=== PATIENT | male | born 1930 | race African-American/Black ===

== ENCOUNTER 2020-02-27 09:35 | Inpatient (IN) | payer OTHER ==
[~2020-02-27] VITALS: Ht 182.9 cm; Wt 69.4 kg
[2020-02-27 09:36] VITALS: BP 107/41
[2020-02-27] MEDS ORDERED: ACETAMINOPHEN650 M5 PO (09:46)
[2020-02-27] MEDS ORDERED: BRIMONIDINE 0.110 ML OPHTHALMIC (09:47)
[2020-02-27] MEDS ORDERED: COMBIVENT INH (09:48)
[2020-02-27] MEDS ORDERED: COSOPT OCUMETER10 M1 OPHTHALMIC (09:49)
[2020-02-27] MEDS ORDERED: EXELON1 EAC1 TRANSDERM (09:49)
[2020-02-27] MEDS ORDERED: FAMOTIDINE 20 M20 MG PO (09:50)
[2020-02-27] MEDS ORDERED: NORVASC10 MG PO (09:50)
[2020-02-27] MEDS ORDERED: LEVAQUIN 500 M500 M3 PO (09:50)
[2020-02-27] MEDS ORDERED: PLAVIX 75 MG TA75 MG PO (09:51)
[2020-02-27] MEDS ORDERED: REMERON15 M2 PO (09:51)
[2020-02-27] MEDS ORDERED: SUPER THERAVIT1 EACH PO (09:51)
[2020-02-27] MEDS ORDERED: TRAVATAN Z5 ML OPHTHALMIC (09:52)
--- NOTE | 2020-02-27 10:22 | NUR ---
SPOKE TO OSIEL, NURSE AT [facility] SHE STATES HE WAS TESTED WEDNESDAY, STILL AWAITING RESULTS. LAST WEDNESDAY'S (02/19/20) TEST WAS NEGATIVE. HE WAS GOING TO BE STARTED ON L[place]AQU[place] BUT DID NOT INITIATE TX YET, NO RECENT USER OF ANTIBIOTICS. SHE IS FAXING CXR RESULTS FROM LAST NIGHT WHICH SHOW RUL INFILTRATES, MOST RECENT CBC HAD WBC COUNT 17.7 (LAST NIGHT). NUMBER [phone]
[2020-02-27 11:02] LABS: ABSOLUTE NEUTROPHILS 13.4 thou/uL (1.4-8.2); BASOPHILS 0.4 % (0.0-2.0); EOSINOPHILS 0.4 % (0.0-3.0); HEMATOCRIT 35.3 % (42.0-52.0); HEMOGLOBIN 11.9 gm/dL (14.0-18.0); LYMPHOCYTES 10.2 % (24.0-44.0); MCH 28.3 pg (26.0-34.0); MCHC 33.8 g/dL (28.0-37.0); MCV 83.8 fL (80.0-100.0); MONOCYTES 7.8 % (1.0-8.0); PLATELET COUNT 508 thou/uL (150-400); POLYS 81.2 % (36.0-66.0); RBC 4.21 mil/uL (4.50-6.00); RDW 14.8 % (10.5-14.5); WBC 16.5 thou/uL (4.0-11.0)
[2020-02-27 11:17] LABS: CREATININE 1.5 mg/dL (0.7-1.3); POTASSIUM 4.2 mmol/L (3.5-5.1)
[2020-02-27 11:25] LABS: TROPONIN-I 0.27 ng/mL (<0.06)
--- NOTE | 2020-02-27 11:40 | NUR ---
OSIEL FROM [facility] CALLED WANTING AN UPDATE, ADVISED WBC IS 16.5 AND THAT HE IS GETTING READY TO GO TO [facility] FOR HIS CHEST. ADVISED WE'D PROBABLY BE KEEPING HIM, SHE WANTS A CALL BACK WHEN THAT DECISION HAS BEEN MADE [phone]
[2020-02-27 14:08] VITALS: BP 121/58
--- NOTE | 2020-02-27 14:30 | NUR ---
SPOKE TO OSIEL AT [facility] AND PROVIDED HER AN UPDATE
--- NOTE | 2020-02-27 15:38 | EKG ---
[facility] [place] [address] ELECTROCARDIOGRAM REPORT Name: GENE LANCE Room #: 217-P ADM IN M.R.#: [id number] Admission: 02/27/20 Attend Phys: Keith Zavala MD Discharge: Date of : [birth year] Report #: [id number] THIS REPORT FOR: cc: Edgardo Nguyen MD, Srinath MD Couchonnal, Luis F. MD ~ THIS REPORT FOR: //name// [facility] ED Test Date: 2020-02-27 Test Time: 10:07:33 Pat Name: GENE LANCE Department: Room: 217 Gender: M Residential Support Worker: ZENA : 1930 Requested By: Timmy Mejia Order Number: [id number] MD: Baljinder Catalan Measurements Intervals [place] Rate: 102 P: -70 SC: 212 QRS: -58 QRSD: 104 T: 114 QT: 352 QTc: 459 Interpretive Statements Atrial flutter Compared to ECG 06/20/1993 07:15:00 Electronically Signed On 02-27-2020 15:38:06 CDT by Baljinder Catalan [email or web address] <ELECTRONICALLY SIGNED> By: Baljinder Catalan MD 02/27/20 1538 1007 1007 Baljinder Catalan MD /EPI
[2020-02-27 16:00] VITALS: BP 115/59
--- NOTE | 2020-02-27 16:41 | NUR ---
ASSUMED CARE OF PT AT APPROX 1530 FROM ER. [facility] ADMISSION ORDERS AND INSTRUCTIONS COMPLETE. PT ARRIVED ON UNIT IN WET/SOILED BRIEF. ASSESSMENT OF PT REVEALED A PRESSURE WOUND ON RIGHT BUTTOCKS, PHOTO TAKEN AND PUT IN CHART. PT ALERT TO SELF AND PLACE. PT INCONTINENT WITH EXTERNAL CATHETER IN PLACE. CALLED FACILITY FOR BASELINES, FACILITY DID NOT KNOW ABOUT CURRENT WOUND. PT IS X1 ASST, USES WHEELCHAIR AT FACILITY. WILL CONTINUE TO MONITOR AND FOLLOW POC.
[2020-02-27 19:05] VITALS: BP 116/54
[2020-02-28 01:35] VITALS: BP 104/29
[2020-02-28 05:55] VITALS: BP 105/49
[2020-02-28 06:09] LABS: ABSOLUTE NEUTROPHILS 12.1 thou/uL (1.4-8.2); BASOPHILS 0.3 % (0.0-2.0); EOSINOPHILS 0.7 % (0.0-3.0); HEMATOCRIT 30.3 % (42.0-52.0); LYMPHOCYTES 10.9 % (24.0-44.0); MCH 28.1 pg (26.0-34.0); MCHC 33.2 g/dL (28.0-37.0); MCV 84.7 fL (80.0-100.0); MONOCYTES 7.5 % (1.0-8.0); POLYS 80.6 % (36.0-66.0); RBC 3.58 mil/uL (4.50-6.00); RDW 14.8 % (10.5-14.5)
[2020-02-28 06:22] LABS: CALCIUM 7.9 mg/dL (8.5-10.1); CREATININE 1.3 mg/dL (0.7-1.3); MAGNESIUM 1.9 mg/dL (1.8-2.4); PLATELET COUNT 426 thou/uL (150-400); POTASSIUM 3.5 mmol/L (3.5-5.1)
--- NOTE | 2020-02-28 07:37 | NUR ---
PATIENT IS PROGRESSING SLOWLY IN HIS CARE PLAN. VITAL SIGNS STABLE WITH PATIENT HAVING, NOR NURSE NOTING ANY PAIN OR NAUSEA ON BEHALF OF PATIENT. PLEASANTLY CONFUSED, PATIENT IS UNABLE TO CALL FOR NEEDS. BREATHING STABLE ON ROOM AIR EVIDENCED BY ASSESSMENTS AND SPOT OXYGENATION CHECKS. SKIN CARE AND TURNS PROVIDED FREQUENTLY. PATIENT HAD ADEQUATE OUTPUT THROUGH CONDOM CATHETER. CONTINUE PLAN OF CARE.
--- NOTE | 2020-02-28 07:54 | EKG ---
[facility] Chris Quiros [facility] [place] [address] ELECTROCARDIOGRAM REPORT Name: GENE LANCE Room #: 217-P ADM IN M.R.#: [id number] Admission: 02/27/20 Attend Phys: Keith Zavala MD Discharge: Date of : [birth year] Report #: [id number] THIS REPORT FOR: cc: Edgardo Nguyen MD, Srinath MD Lundgren,Jarod Roca MD [facility] ~ THIS REPORT FOR: //name// [facility] Test Date: 2020-02-28 Test Time: 07:09:44 Pat Name: GENE LANCE Department: Room: 217 P Gender: M Surveyor: CORI : 1930 Requested By: Nisa Melchor Order Number: [id number] MD: Jarod Camp Measurements Intervals [place] Rate: 89 P: 0 [place]: 194 QRS: -58 QRSD: 109 T: 92 QT: 372 QTc: 453 Interpretive Statements Sinus rhythm Inferior infarct, old Nonspecific ST and T wave abnormality Compared to ECG 02/27/2020 10:07:33 Atrial flutter no longer present Electronically Signed On 02-28-2020 7:54:41 CDT by Jarod Camp [email or web address] <ELECTRONICALLY SIGNED> By: Jarod Camp MD, FACC 02/28/20 0754 0709 0709 Jarod Camp MD, FACC /EPI
[2020-02-28 08:30] VITALS: BP 123/76
--- NOTE | 2020-02-28 09:45 | 2DMMODE ---
[facility] [place] [address] 2 D/M-MODE ECHOCARDIOGRAM Name: GENE LANCE Room #: 217-P ADM IN M.R.#: [id number] Admission: 02/27/20 Attend Phys: Keith Zavala MD Discharge: Date of : [birth year] Report #: [id number] THIS REPORT FOR: cc: Edgardo Nguyen MD, Srinath MD Lundgren,Jaord Roca MD [facility] ~ APPROVED REPORT Study performed: 02/28/2020 08:44:05 EXAM: Comprehensive 2D, Doppler, and color-flow Echocardiogram Patient Location: Bedside Room #: 217 Status: routine BSA: 2.03 HR: 88 bpm BP: 105/49 mmHg Rhythm: IRREGULAR Other Information Study Quality: Adequate/patient flat on back. Lung interference. Indications Aflutter, elevated troponin, short of air. Hx: CABG, CHF, CVA, COPD, HTN, HLP. 2D Dimensions RVDd: 38.93 mm IVSd: 12.00 (7-11mm) LVOT Diam: 22.63 (18-24mm) LVDd: 56.29 mm PWd: 9.07 (7-11mm) LVDs: 49.62 (25-40mm) Aortic Root: 37.59 mm Volumes Left Atrial Volume (Systole) Single Plane 4CH: 39.70 mL Single Plane 2CH: 39.91 mL LA ESV Index: 24.00 mL/m2 Aortic Valve AoV Peak Steven.: 1.92 m/s AO Peak Gr.: 14.69 mmHg LVOT Max P.52 mmHg AO Mean Gr.: 7.00 mmHg [facility] [address] [place] [address] 2 D/M-MODE ECHOCARDIOGRAM Name: GENE LANCE Room #: 217-P [facility] IN [facility]#: [id number] Admission: 02/27/20 Attend Phys: Keith Zavala, Discharge: Date of : [birth year] Report #: [id number] AO V2 Mean: 1.27 m/s LVOT Max V: 0.94 m/s AO V2 VTI: 25.90 cm RANGEL Vmax: 1.97 cm2 Mitral Valve E/A Ratio: 0.5 MV Decel. Time: 293.08 ms MV E Max Steven.: 0.50 m/s MV A Steven.: 0.98 m/s MV PHT: 84.99 ms IVRT: 65.74 ms Pulmonary Valve PV Peak Steven.: 1.08 m/s PV Peak Gr.: 4.67 mmHg Tricuspid Valve TR Peak Steven.: 2.76 m/s RAP Estimate: 5.00 mmHg TR Peak Gr.: 31.00 mmHg PA Pressure: 36.00 mmHg Left Ventricle Left ventricle is mildly dilated. Mild basal septal hypertrophy is present. Left ventricular systolic function is severely decreased. LVEF is 25-30%. Septal and mid to distal inferior wall akinesis. Global hypokinesis Mild diastolic dysfunction is present (impaired relaxation pattern). Right Ventricle The right ventricle is normal size. Right ventricle is mildly hypokinetic. Atria The left atrium size is normal. The right atrium size is normal. Aortic Valve The aortic valve is moderately calcified. No aortic regurgitation is present. Mild aortic stenosis. Mitral Valve The mitral valve is normal in structure. Trace mitral regurgitation. No evidence of mitral valve stenosis. Tricuspid Valve The tricuspid valve is normal in structure. Trace to mild tricuspid regurgitation. Estimated PAP is 35-40mmHg. [facility] [address] [place] [address] 2 D/M-MODE ECHOCARDIOGRAM Name: GENE LANCE Room #: 217-P [facility] IN .R.#: [id number] Admission: 02/27/20 Attend Phys: Keith Zavala, Discharge: Date of : [birth year] Report #: [id number] Pulmonic Valve Pulmonic valve is not well visualized. Great Vessels Aortic root is borderline dilated. Ascending aorta is not well visualized. IVC is normal in size and collapses >50% with inspiration. Pericardium There is no pericardial effusion. <Conclusion> Left ventricular systolic function is severely decreased. LVEF is 25-30%. Septal and mid to distal inferior wall akinesis. Global hypokinesis Mild diastolic dysfunction is present (impaired relaxation pattern). The aortic valve is moderately calcified. Mild aortic stenosis, no insufficiency. The mitral valve is normal in structure. Trace mitral regurgitation. Trace to mild tricuspid regurgitation. Estimated pulmonary artery pressure of 35-40mmHg. There is no pericardial effusion. <ELECTRONICALLY SIGNED> By: Jarod Camp MD, FACC 02/28/20944 4 4 Jarod Camp MD, FACC /INF
--- NOTE | 2020-02-28 10:27 | NUR ---
WOUND CONSULT; AN UNSTAGEABLE PRESSURE ULCER WAS IDENTIFIED TO THE RIGHT BUTTOCKS. THE ESCHAR IS STABLE. NO S/S OF INFECTION. RECOMMENDATIONS; 1-LOW AIR LOSS BED PUMP. 2-Q2H TURING 3-PAINT WITH BETADINE 4-CONSULT DR PATTON RN PRESENT
--- NOTE | 2020-02-28 10:36 | NUR ---
S.C. CONSULT [id number] COMPLETED BY ALEX HEDRICK.
[2020-02-28 12:00] VITALS: BP 102/31
[2020-02-28 15:58] VITALS: BP 122/62
--- NOTE | 2020-02-28 18:57 | NUR ---
ASSESSMENTAAS CHARTED - MEDS PER SEP - PT NOT WANTING TO EAT THIS EVENING, WAS NPO FOR THE DAY - SEEN BY SPEECH FOR EVAL. MECHANICAL SOFT AND NECTAR THICK. NO CO'S OF PAIN OR NAUSEA. HAS SPENT THE DAY RESTING IN BED - INCONTINENT OF STOOL THIS AM. SEEN BY WOUND CARE AND TREATMENT TENDED TO BUTTOCKS. NO CO'S AT THE PRESENT TIME. APPEARS TO BE RESTING COMFORTABLY.
[2020-02-28 19:13] VITALS: BP 118/40
[2020-02-28 19:15] LABS: APTT 42.1 Seconds (24.5-32.8); INR 1.2
[2020-02-29 04:31] VITALS: BP 120/52
--- NOTE | 2020-02-29 05:54 | NUR ---
ASSESSMENTS CHARTED, MEDS CHARTED GIVEN. PATIENT RESTING IN BED DURING SHIFT. REQUESTING WATER AND GETTING NECTUR THICK LIQUID UNTIL MIDNIGHT WHEN HE BECAME NPO FOR CT BIOPSY OF RIGHT LUNG MASS. MAINTENANCE FLUIDS GIVEN DURING SHIFT. PATIENT NEEDED 4 UNIT OXYGEN AT NIGHT TIME. FALL PRECAUTIONS IN PLACE DURING SHIFT. DENIED PAIN.
[2020-02-29 06:16] LABS: HEMATOCRIT 31.4 % (42.0-52.0); HEMOGLOBIN 10.3 gm/dL (14.0-18.0); MCH 28.3 pg (26.0-34.0); RBC 3.65 mil/uL (4.50-6.00); RDW 14.9 % (10.5-14.5); WBC 16.8 thou/uL (4.0-11.0)
--- NOTE | 2020-02-29 07:36 | HC ---
[facility] [place] [address] CONSULTATION Name: GENE LANCE Room #: 217-P ADM IN M.R.#: [id number] Admission: 02/27/20 Attend Phys: Keith Zavala MD Discharge: Date of : [birth year] Report #: [id number] THIS REPORT FOR: cc: Edgardo Nguyen MD, Srinath MD McKittrick, Richard James MD ~ CC: Keith Kolb MD REFERRING PHYSICIAN: Dr. Keith Zavala. REASON FOR CONSULTATION: Lung mass with multiple bilateral soft tissue noncalcified pulmonary nodules. 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 He does have dementia, so his part of the history is very questionable. Per the chart, the patient had had worsening shortness of air and was brought to the hospital. Unfortunately, here he was found to have a large right upper lobe lung mass measuring up to 10 cm in some dimensions and also with bilateral noncalcified pulmonary nodules measuring up to 2 cm. The patient says he does not have any headache trouble. He does not think he has any thinking trouble, swallowing trouble. He does not recall any fevers or chills, abdominal pain. His family had not seen him since September. They do not know if he has lost any weight. They have not seen him there much. The patient denies any skin rashes, any nausea or blood in his urine or stool. PAST MEDICAL HISTORY: Notable for mention of past COVID positive at [place]. Also, hypertension, hyperlipidemia, COPD, CHF, dementia, GERD and CVA. There is also mention of atrial flutter in the past. I am not sure this is current. There is also history of C. diff. There is a comment that it a vascular dementia and there is also mention of pain in his hip. Glaucoma. SOCIAL HISTORY: [place] He was a smoker until recently. No street drugs. ____ he had drunk some alcohol in the past, but it is not excess by his description. It is like in the past this maybe 3 beers at night, but it sounds like it has not been much lately. MEDICATIONS: At this time include levofloxacin q.48 hours, mirtazapine 7.5 mg daily, amlodipine 10 mg daily, rivastigmine 9.5 mg daily, pantoprazole 40 daily, latanoprost drops to each eye, dorzolamide eyedrops, brimonidine eyedrops, Lovenox 40 mg at bedtime, budesonide respiratory therapy 0.5 mg RT b.i.d., ipratropium q.6 hours and insulin on a sliding scale. [address] [address] CONSULTATION Name: GENE LANCE Room #: 217-P [facility] IN M.R.#: [id number] Admission: 02/27/20 Attend Phys: Keith Zavala MD Discharge: Date of : [birth year] Report #: [id number] LABORATORY DATA: This admission notable for creatinine of 1.3. Liver function is not available, we will probably check those. White count 15, had been 16.5 yesterday. Hemoglobin 10, MCV 84.7, RDW 14.8, platelets 426, ANC 13,400. COVID negative. Vitamin B12, 570. CA 19-9 pending. UA pending. PHYSICAL EXAMINATION: VITAL SIGNS: The patient's height reported as 6 feet or 182.9 cm, weight 178 pounds or 80.74 kilograms. Blood pressure is 105/49, O2 sat 94%, respirations 16, pulse 88, temperature mild elevation at 99.5. MOOD: The patient is pleasant and conversant. NEUROLOGIC: Not much depth on his answers. Speech and thought pattern appear to be normal for simple questions. Face mostly appears symmetrical. He is moving arms and legs. I did not notice any gross abnormalities. LYMPHATICS: No enlarged lymph nodes in the supraclavicular, cervical, axillary or inguinal region. ABDOMEN: Scaphoid. No masses. No hepatosplenomegaly. EXTREMITIES: Without clubbing, cyanosis or edema. ASSESSMENT AND PLAN: 1. Large right lung mass with bilateral noncalcified pulmonary nodules, very worrisome for bronchogenic carcinoma with postobstructive pneumonia. Discussed with the patient's Fanta SIMON and she thinks it would be reasonable like to proceed with bronchoscopy of pulmonary ____, though I think she would agree that aggressive therapy probably not be warranted in the patient ____ hospice if we do find malignancy. We will proceed in that direction. 2. Possible postobstructive pneumonia. The patient is on levofloxacin. 3. Chronic obstructive pulmonary disease, inhalation therapy. 4. Hypertension. Meds as above. 5. Hyperlipidemia. No stents at this time. 6. Renal insufficiency. Monitor and modify dose of medications and watch IV or watch fluid status. 7. History of gastroesophageal reflux disease. The patient is on pantoprazole. 8. Dementia. Continue careful use of opiates or other mood-altering drugs and change educational interact with the patient as necessary. 9. Prognosis. Told the patient's sister that if this is lung cancer stage 4 that it would appear to be the prognosis is probably in the same range of 1 to 4 months, no more that he would develop worsening pneumonia sometime in the future. We will follow with you. <ELECTRONICALLY SIGNED> By: Enio Solis MD 02/29/20 0736 0757 0824 Enio Solis MD /nt
[2020-02-29 08:00] VITALS: BP 127/54
[2020-02-29 12:10] VITALS: BP 111/56
--- NOTE | 2020-02-29 15:47 | NUR ---
Patient admits from [facility] with aflutter. Has mass in lung. Dr Kolb has consulted Dr Moses. met with patient who is forgetfull. Able to say he is in hospital. dr Moses speaking with family at this time. Plan return to [facility] once stable.
[2020-02-29 16:00] VITALS: BP 111/51
--- NOTE | 2020-02-29 16:14 | NUR ---
ASSESSMENT CHARTED. PT ALERT, ORIENTED TO SELF,AND PLACE. VERY FORGETFUL. SEEN BY DR. FOWLER AND DR. WATSON. ORDERS NOTED. FAMILY UPDATED ON PT'S PROGRESS. WILL CONTINUE TO MONITOR.
[2020-02-29 19:24] VITALS: BP 114/55
[2020-03-01 04:58] VITALS: BP 103/56
[2020-03-01 08:03] VITALS: BP 104/56
--- NOTE | 2020-03-01 08:03 | NUR ---
ASSUME CARE 1900. PT/VITALS STABLE. A/O TO PERSON ONLY AND POOR COMMUNICATION WITH NEEDS. NO DISTRESS NOTED THROUGH THE NIGHT. MODERATE TOLERANCE TO ACTIVITY. SR ON MONITOR. PROGRESSING WELL WITH POC. ASSESSMENT CHARTED. PLAN IS DISCHARGE PT TO ASSISTED WITH HOSPICE. WILL CONTINUE TO MONITOR AND FOLLOW WITH POC
[2020-03-01] MEDS ORDERED: CARVEDILOL3.125 MG PO (10:06)
[2020-03-01] MEDS ORDERED: IPRAT-ALBUT 0.5-3 ML INH (10:06)
[2020-03-01] MEDS ORDERED: HALOPERIDOL2 MG/1 ML PO (12:09)
[2020-03-01] MEDS ORDERED: LORAZEPAM I2 MG/1 M2 SUBLING (12:09)
[2020-03-01] MEDS ORDERED: MSL20MG/ML SUBLING (12:09)
[2020-03-01 12:23] VITALS: BP 128/96
--- NOTE | 2020-03-01 12:29 | NUR ---
patient to discharge today to [facility] via stretcher van at 1500. Left msg for Ms Donald and Jeri on their phones. Updated [facility], faxed orders, RN aware of discharge. No further needs
--- NOTE | 2020-03-01 15:16 | NUR ---
ASSESSMENT CHARTED. PT VERY LETHAGIC TODAY. PRN PAIN MED GIVEN. ORDERS GIVEN TO DISCHARGE PT TO SNF WITH HOSPICE. FAMILY NOTIFIED.
--- NOTE | 2020-03-05 09:54 | HC ---
[facility] [place] [address] CONSULTATION Name: GENE LANCE Room #: 217-P [facility] IN M.R.#: [id number] Admission: 02/27/20 Attend Phys: Keith Zavala MD Discharge: 03/01/20 Date of : [birth year] Report #: [id number] THIS REPORT FOR: cc: Edgardo Nguyen MD,Edgardo Mcintosh,Yuri Salazar MD ~ CC: Keith Nguyen DATE OF SERVICE: 02/28/2020 CHIEF COMPLAINT: Pressure ulcerations of the right gluteal region. HISTORY OF PRESENT ILLNESS: This is an 89-year-old male patient with COPD and dementia and hypertension with a history of cerebrovascular accident, was admitted to the hospital with shortness of breath and subsequently diagnosed with sepsis secondary to possible pneumonia. He was noted to have gluteal pressure ulcerations. I have been asked to see him with regard to wound care. The patient cannot provide much information about himself. PAST MEDICAL HISTORY: Positive for hypertension, chronic low back pain, hypertensive heart disease with heart failure, history of osteomyelitis, diarrhea, vascular dementia with behavior disturbance, hypotension, esophagitis, previous femur fracture. ALLERGIES: No known drug allergies. MEDICATIONS: Include acetaminophen, ipratropium, Cosopt, Exelon, famotidine, Levaquin, Norvasc, Plavix, Remeron, Travatan. SOCIAL HISTORY: Noncontributory. REVIEW OF SYSTEMS: Not reliably obtainable due to the patient's underlying level of dementia. PHYSICAL EXAMINATION: VITAL SIGNS: At this time include temperature 100.0, pulse 86, respiratory rate 16, blood pressure 118/40. GENERAL: This is a chronically ill-appearing male patient who appears to be in minimal distress. HEENT: Head normocephalic. Nose and throat clear. NECK: Supple. LUNGS: Diminished. HEART: Regular rhythm. ABDOMEN: Soft and nontender. EXTREMITIES: Examination of the gluteal region demonstrates stage 3 pressure [facility] [address] [place] [address] CONSULTATION Name: [place] Room #: 217-P [facility] IN M.R.#: [id number] Admission: 02/27/20 Attend Phys: Keith Zavala MD Discharge: 03/01/20 Date of : [birth year] Report #: [id number] ulceration to the right buttock and some generalized ____ throughout the area. NEUROLOGIC: The patient is awake. He is confused, not able to answer questions easily. CLINICAL IMPRESSION: 1. Stage 3 pressure ulcer of the right buttock. 2. History of cerebrovascular accident with generalized weakness. 3. Chronic obstructive pulmonary disease, pneumonia. 4. 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 5. History of vascular dementia. 6. History of alcohol and tobacco use. 7. Severe protein-calorie malnutrition. RECOMMENDATIONS: At this point in time, we will recommend Z-guard to the gluteal sacral region t.i.d. and p.r.n., low air loss mattress, q. 2 hour turning and positioning. We will need ongoing nutritional support. Continue medical management as he was begun. I appreciate being asked to see him in consultation. <ELECTRONICALLY SIGNED> By: Yuri Mcintosh MD 03/05/20 0954 1329 1414 Yuri Mcintosh MD /nt
== END 2020-03-01 15:18 | disposition hospice, home (50) | DRG 592 ==
LOC: ER 09:35 → EROBS 14:01 → 2N 14:01
PROVIDERS: Emergency Medicine; Internal Medicine Pulmonary Disease; Nurse Practitioner; ADMIT Internal Medicine; ATTEND Internal Medicine
DX: L89.313 Pressure ulcer of right buttock, stage 3 (principal); E43 Unspecified severe protein-calorie malnutrition; I50.23 Acute on chronic systolic (congestive) heart failure; N17.9 Acute kidney failure, unspecified; I48.92 Unspecified atrial flutter; I42.9 Cardiomyopathy, unspecified; J44.0 Chronic obstructive pulmonary disease with (acute) lower respiratory infection; Z20.828 Contact with and (suspected) exposure to other viral communicable diseases; R91.8 Other nonspecific abnormal finding of lung field; E78.5 Hyperlipidemia, unspecified; K59.00 Constipation, unspecified; E78.00 Pure hypercholesterolemia, unspecified; K21.9 Gastro-esophageal reflux disease without esophagitis; I11.0 Hypertensive heart disease with heart failure; G89.29 Other chronic pain; M54.5 Low back pain; Z66 Do not resuscitate; Z51.5 Encounter for palliative care; J98.4 Other disorders of lung; I48.91 Unspecified atrial fibrillation; R63.4 Abnormal weight loss; F01.50 Vascular dementia, unspecified severity, without behavioral disturbance, psychotic disturbance, mood disturbance, and anxiety; Z71.6 Tobacco abuse counseling; Z86.73 Personal history of transient ischemic attack (TIA), and cerebral infarction without residual deficits; Z71.41 Alcohol abuse counseling and surveillance of alcoholic
CPT/HCPCS: 10081